=== PATIENT | male | born 1990 | race Caucasian/White ===

== ENCOUNTER 2018-07-12 10:41 | Emergency (ER) | payer OTHER ==
[2018-07-12 10:45] VITALS: BP 156/87
--- NOTE | 2018-07-12 10:59 | EDPHY ---
General Time Seen by Provider: 07/12/18 10:48 Narrative: CHIEF COMPLAINT: Leg injury, bruising HISTORY OF PRESENT ILLNESS: Patient presents with complaints of right leg injury on . He states that he was at work when he accidentally struck his right leg when taking something out the trash. Since then he has had some pain, swelling and bruising that has developed over the area that he is concerned about. No numbness, tingling, weakness, redness, warmth or pallor. He has minimal pain at rest. It is mild to moderate when weight-bearing. Unable to work today due to the pain. He has no pain in the calf. No pain in the foot. No other associated complaints or modifying factors ESTABLISHED ORTHOPEDIST: None REVIEW OF SYSTEMS: Ten systems reviewed and are negative unless otherwise noted in the HPI PAST MEDICAL HISTORY: Uncomplicated PAST SURGICAL HISTORY: No surgical history SOCIAL HISTORY: Nonsmoker. Works locally. Lives independently. FAMILY HISTORY: Noncontributory EXAMINATION General Appearance: Alert, no distress Cardiovascular: Symmetric radial pulses 2+. Good signs of perfusion of the right foot and lower extremity. Neurological: A&O, light sensory symmetric, knee, ankle and great toe strength symmetric Skin: Warm and dry, no rash. There is moderate ecchymosis to the right leg below the knee, medially extending inferiorly. There is no cyanosis, pallor, erythema. No laceration or puncture. No petechiae or purpura Extremities: Mild tenderness to the right knee over the medial tibial plateau. There is no tenderness of the right calf, foot or heel. There is no palpable cord or evidence of DVT. Psychiatric: Mood and affect normal DIFFERENTIAL DIAGNOSES: Including but not limited to hematoma, contusion, sprain, strain, fracture, DVT MDM: 10:50 a.m. Acute hematoma, pain and swelling over an area of injury from 2 days ago. No evidence of DVT. No evidence of cellulitis. No evidence of compartment syndrome. I have ordered x-ray of the tib-fib to rule out fracture. I feel this is on likely but does have a large area of ecchymosis. He is neuro intact distally. 11:40 a.m. X-rays negative for acute fracture. Patient re-evaluated. We discussed warm compresses, ibuprofen [id number] and short course to 81 mg aspirin. We discussed follow up with worker's compensation for definitive care. We discussed ED precautions for redness, warmth, swelling, numbness, tingling or pain distal to the calf. He is comfortable this plan discharged home stable condition. SUPERVISION: This patient was independently evaluated without direct involvement of or examination by the attending physician. ED Precautions: Worsening pain. Erythema, edema, cyanosis, pallor, paresthesia or anesthesia. - Diagnostics Imaging Results: Imaging Impressions Tibia/Fibula X-Ray 07/12/18 10:59 Impression: No evidence for acute osseous abnormality right tibia and fibula. - History Smoking Status: Never smoked - Objective Vital Signs: Initial Vital Signs Temperature (C) 98.8 F 07/12/18 10:42 Heart Rate 70 07/12/18 10:42 Respiratory Rate 16 07/12/18 10:42 Blood Pressure 156/87 H 07/12/18 10:42 O2 Sat (%) 97 07/12/18 10:42 O2 Delivery Mode Room Air Allergies/Adverse Reactions: No Known Allergies Allergy (Unverified 07/12/18 10:45) Home Medications: Medication Instructions Recorded NK [No Known Home Meds] 07/12/18 Departure - Departure Disposition: Home, Routine, Self-Care Clinical Impression: Hematoma Contusion Qualifiers: Encounter type: initial encounter Contusion area: lower leg Laterality: right Qualified Code(s): S80.11XA - Contusion of right lower leg, initial encounter Condition: Good Instructions: Contusion in Adults (ED), Hematoma (ED) Additional Instructions: 1. Continue ibuprofen [id number] as discussed 2. 81 mg aspirin [id number], 1 pill by mouth every 3 days for 7-10 days 3. Follow up with worker's compensation for definitive care 4. ED precautions for any redness, warmth, swelling of the calf, swelling of the ankle or foot Referrals: Sander Cole MD [Medical Doctor] - As per Instructions Stand Alone Forms: Work Comp Follow Up
== END 2018-07-12 12:02 | disposition home or self-care (01) ==
DX: S80.11XA Contusion of right lower leg, initial encounter (principal); W22.8XXA Striking against or struck by other objects, initial encounter; Y99.0 Civilian activity done for income or pay; Y92.9 Unspecified place or not applicable; Y93.89 Activity, other specified